=== PATIENT | male | born 1950 ===

== ENCOUNTER 2019-03-22 07:58 | Outpatient (CLI) | payer OTHER ==
[~2019-03-22] VITALS: Ht 152.4 cm; Wt 93.4 kg
== END 2019-03-22 08:15 | disposition home or self-care (01) ==
LOC: OFIC 805 07:58
DX: H93.12 Tinnitus, left ear (principal); H90.3 Sensorineural hearing loss, bilateral; R42 Dizziness and giddiness

== ENCOUNTER 2019-06-28 07:46 | Outpatient (CLI) | payer OTHER ==
[~2019-06-28] VITALS: Ht 152.4 cm; Wt 93.4 kg
== END 2019-06-28 09:51 | disposition home or self-care (01) ==
LOC: OFIC 805 07:46
DX: H93.12 Tinnitus, left ear (principal); H90.3 Sensorineural hearing loss, bilateral; R42 Dizziness and giddiness; M26.622 Arthralgia of left temporomandibular joint; H81.12 Benign paroxysmal vertigo, left ear